=== PATIENT | female | born 1985 | race Caucasian/White ===

== ENCOUNTER 2020-06-08 15:32 | Emergency (ER) | payer OTHER, SELFPAY ==
--- NOTE | ~2020-06-08 | XR_ITS ---
EXAMINATION: XR chest 1V portable EXAM DATE: 06/08/2020 17:43 INDICATION: COVID-19 positive. Shortness of breath. TECHNIQUE: Portable AP frontal chest x-ray was obtained. Comparison is made to prior examination from 08/04/2017. FINDINGS: The lungs are clear. There are no pleural effusions. The cardiomediastinal silhouette is within normal limits. There is no pneumothorax suspected. The bones and soft tissues are unremarkab le. IMPRESSION: No acute cardiopulmonary findings. Reviewed, dictated and finalized at location A.
[2020-06-08 15:52] VITALS: BP 130/80; PULSE 100; RESP 16; TEMP 36.4; O2SAT 99
--- NOTE | 2020-06-08 18:07 | ECG_ITS ---
Measurements Intervals Wayside Rate: 74 P: 55 SD: 157 QRS: 22 QRSD: 90 T: 18 QT: 376 QTc: 418 Interpretive Statements SINUS RHYTHM INCOMPLETE RIGHT BUNDLE BRANCH BLOCK BORDERLINE ST-T WAVE ABNORMALITY- ANERTEROLAT/INF LEADS BASELINE ARTIFACT- I, II, III, AVR, AVL BORDERLINE ECG Electronically Signed On 06-08-2020 21:29:23 CDT by Tiburcio Brice D.O.
--- NOTE | 2020-06-08 18:27 | ED.URI ---
HPI - URI/Sore Throat General Chief Complaint: Upper Respiratory Infection Stated Complaint: sob, covid + Time Seen by Provider: 06/08/20 17:31 Source: patient Mode of arrival: ambulatory Limitations: no limitations History of Present Illness HPI Narrative: This is a 34-year-old female that presents the emergency department for shortness of breath x3 days. Reports she has recently diagnosed with Covid. Reports she has had worsening shortness of breath over the last couple of days. Reports chest pain when she coughs. Denies fever or lower extremity edema. Related Data Allergies Allergy/AdvReac Type Severity Reaction Status Date / Time acetaminophen [From Vicodin] Allergy Unknown Verified 06/08/20 15:54 hydrocodone [From Vicodin] Allergy Unknown Verified 06/08/20 15:54 Review of Systems Review of Systems: Narrative: CONSTITUTIONAL: Denies fever ENT: Reports rhinorrhea, congestion, sore throat CARDIOVASCULAR: Reports chest pain. Denies edema. RESPIRATORY: Reports cough and dyspnea. All systems reviewed & are unremarkable except as noted in HPI and below PMFSH Social History Social History (Updated 06/08/20 @ 18:43 by Marian Combs PA-C) Smoking status: Current every day smoker Substance use: never Exam Narrative: Exam Narrative: GENERAL: Well-appearing, well-nourished, and in no acute distress. HEAD: Normocephalic, atraumatic. EYES: EOMI. ENT: Nares clear, no rhinorrhea or epistaxis. Mucous membranes moist. Oropharynx without tonsillar hypertrophy exudate or other lesions. Bilateral TMs pearly tejeda non-bulging NECK: Supple. No adenopathy or masses. CHEST: Clear to auscultation. No respiratory distress. No wheezes rales or rhonchi HEART: Regular rate and rhythm. No murmur heard. Normal peripheral pulses. EXTREMITIES: Normal range of motion. No edema. SKIN: Warm, dry, no rash. NEURO: No focal deficits. Alert and oriented x3. PSYCH: Normal mood and affect Course Vital Signs Vital signs: Vital Signs Temperature 97.6 F 06/08/20 15:52 Pulse Rate 100 06/08/20 15:52 Respiratory Rate 16 06/08/20 15:52 Blood Pressure 130/80 06/08/20 15:52 Pulse Oximetry 99 06/08/20 15:52 Temperature 97.6 F 06/08/20 15:52 Pulse Rate 79 06/08/20 18:57 Respiratory Rate 15 06/08/20 18:57 Blood Pressure 114/85 06/08/20 18:57 Pulse Oximetry 95 06/08/20 18:57 MDM - URI/Sore Throat MDM Narrative Medical decision making narrative: Patient presents the emergency department for shortness of breath. Was recently diagnosed with Covid. She is afebrile and nontoxic appearing. Oxygen saturation has remained normal on room air. CBC is without leukocytosis. Metabolic panel without concerning findings. CRP and lactic are not elevated. D-dimer is not elevated. Troponin is negative. Chest x-ray without acute findings. Patient was updated on case findings. She is stable and felt appropriate for further outpatient evaluation. She was given warnings to return to the ER Lab Data Attestation: I reviewed the patient's lab results. Result diagrams: 06/08/20 18:38 06/08/20 18:38 Labs: Lab Results 06/08/20 06/08/20 06/08/20 Range/Units 18:38 18:38 18:38 WBC 7.8 (4.5-10.0) K/mm3 RBC 4.95 (4.2-5.4) M/mm3 Hgb 14.3 (12.0-15.0) g/dL Hct 43.5 (37.0-47.0) % MCV 87.9 (80-100) fl MCH 28.9 (26-34) pg MCHC 32.9 (32-36) g/dl RDW 14.3 (11.5-14.5) % Plt Count 249 (150-375) k/mm3 MPV 10.2 (7.4-10.4) fl Immature Gran % (Auto) 0.1 (0-0.5) % Neut % (Auto) 62.2 (45.5-73.1) % Lymph % (Auto) 25.8 (18.3-44.2) % [place] % (Auto) 10.5 H (2.6-8.5) % Eos % (Auto) 1.0 (0-4.4) % Baso % (Auto) 0.4 (0.2-1.2) % Lymph # (Auto) 2.01 (0.9-3.2) K/mm3 [place] # (Auto) 0.8 H (0.1-0.6) K/mm3 Eos # (Auto) 0.1 (0-0.3) K/mm3 Baso # (Auto) 0.0 (0.0-0.1) K/mm3 Abs Immat Gran (auto) 0.01 (0.00-0.031) K/mm3 Absolute
[2020-06-08 18:55] LABS: Basophils Percent Auto 0.4 % (0.2-1.2); Eosinophils Absolute Auto 0.1 K/mm3 (0-0.3); Hematocrit 43.5 % (37.0-47.0); Hemoglobin 14.3 g/dL (12.0-15.0); Immature Granulocyte Absolute 0.01 K/mm3 (0.00-0.031); Immature Granulocyte Percent A 0.1 % (0-0.5); Lymphocytes Absolute Auto 2.01 K/mm3 (0.9-3.2); Lymphocytes Percent Auto 25.8 % (18.3-44.2); Mean Corpuscular HGB Conc 32.9 g/dl (32-36); Mean Corpuscular Hemoglobin 28.9 pg (26-34); Mean Corpuscular Volume 87.9 fl (80-100); Mean Platelet Volume 10.2 fl (7.4-10.4); Monocytes Absolute Auto 0.8 K/mm3 (0.1-0.6); Monocytes Percent Auto 10.5 % (2.6-8.5); Neutrophils Absolute Auto 4.8 K/mm3 (1.3-6.7); Neutrophils Percent Auto 62.2 % (45.5-73.1); Platelet Count Result 249 k/mm3 (150-375); Red Blood Count 4.95 M/mm3 (4.2-5.4); Red Cell Distribution Width 14.3 % (11.5-14.5); White Blood Count 7.8 K/mm3 (4.5-10.0)
[2020-06-08 18:57] VITALS: BP 114/85; PULSE 79; RESP 15; O2SAT 95
[2020-06-08 19:04] LABS: Prothrombin Time 12.6 Seconds (11.1-14.7)
[2020-06-08 19:05] LABS: Lactic Acid Reflex 0.6 mmol/L (0.7-2.1)
[2020-06-08 19:08] LABS: D Dimer 0.45 ug/mL (<0.48)
[2020-06-08 19:11] LABS: Alanine Aminotransferase 22 U/L (4-35); Albumin Level 4.6 g/dL (3.5-5.1); Alkaline Phosphatase 87 U/L (38-126); Anion Gap 8 mmol/L (8-16); Aspartate Amino Transferase 25 U/L (14-36); Bilirubin,Total 0.7 mg/dL (0.2-1.3); Blood Urea Nitrogen 14 mg/dL (7-17); CRP 0.7 mg/dL (<1.0); Calcium 9.3 mg/dL (8.4-10.2); Carbon Dioxide 26 mmol/L (22-30); Chloride 105 mmol/L (98-107); Estimated CRCL calculation 95 ml/min; Estimated Glomerular Filt Rate > 60; Glucose 88 mg/dL (65-105); Lactate Dehydrogenase 375 U/L (313-618); Potassium 3.9 mmol/L (3.4-5.0); Sodium 139 mmol/L (137-145)
[2020-06-08 19:19] LABS: Troponin I < 0.012 ng/mL (0.000-0.034)
[2020-06-08 20:12] VITALS: BP 112/80; PULSE 77; RESP 14; O2SAT 98
== END 2020-06-08 20:13 | disposition home or self-care (01) ==
PROVIDERS: Physician Assistant; Emergency Provider Emergency Medicine; PCP Family Medicine
DX: U07.1 COVID-19 (principal); I45.10 Unspecified right bundle-branch block; R94.31 Abnormal electrocardiogram [ECG] [EKG]; F17.200 Nicotine dependence, unspecified, uncomplicated
CPT/HCPCS: 36415; 71045; 80053; 82728; 83605; 83615; 84484; 85025; 85380; 85610; 85730; 86140; 93005; 99284

== ENCOUNTER 2021-03-21 12:05 | Outpatient (CLI) | payer OTHER, SELFPAY ==
[2021-03-21] VITALS (12 sets, daily range): BP systolic 135–153; BP diastolic 88–101; PULSE 76–101
[2021-03-21 13:08] LABS: Basophils Percent Auto 0.3 % (0.2-1.2); Eosinophils Absolute Auto 0.1 K/mm3 (0-0.3); Eosinophils Percent Auto 1.2 % (0-4.4); Hematocrit 29.8 % (37.0-47.0); Hemoglobin 9.6 g/dL (12.0-15.0); Immature Granulocyte Percent A 0.9 % (0-0.5); Lymphocytes Absolute Auto 2.51 K/mm3 (0.9-3.2); Lymphocytes Percent Auto 23.4 % (18.3-44.2); Mean Corpuscular HGB Conc 32.2 g/dl (32-36); Mean Corpuscular Hemoglobin 28.7 pg (26-34); Mean Platelet Volume 10.5 fl (7.4-10.4); Monocytes Absolute Auto 0.9 K/mm3 (0.1-0.6); Monocytes Percent Auto 7.9 % (2.6-8.5); Neutrophils Absolute Auto 7.1 K/mm3 (1.3-6.7); Neutrophils Percent Auto 66.3 % (45.5-73.1); Platelet Count Result 221 k/mm3 (150-375); Red Blood Count 3.35 M/mm3 (4.2-5.4); Red Cell Distribution Width 13.2 % (11.5-14.5); White Blood Count 10.7 K/mm3 (4.5-10.0)
[2021-03-21 13:13] LABS: Add Urine Microscopic? YES; Appearance Urine Clear (Clear); Bacteria Urine Trace /hpf; Bilirubin Urine Negative (Negative); Blood Urine Negative (Negative); Color Urine Straw (Yellow); Glucose Urine UA Negative (Negative); Ketones Urine Negative (Negative); Leukocyte Esterase Ur 1+ LEU/UL (NEGATIVE); Nitrate Urine Negative (Negative); Protein Urine 2+ mg/dL (Negative); RBC Urine 0-2 /hpf (0-2); Squamous Epithelial Cell Urine Moderate /hpf (Few); Urobilinogen Urine Negative mg/dL (<2.0)
[2021-03-21 13:15] LABS: Creatinine Urine 21.2 mg/dL; Total Protein Urine Random 87 mg/dL
[2021-03-21 13:17] LABS: Alanine Aminotransferase 11 U/L (4-35); Albumin Level 3.2 g/dL (3.5-5.1); Alkaline Phosphatase 166 U/L (38-126); Anion Gap 8 mmol/L (8-16); Aspartate Amino Transferase 19 U/L (14-36); Bilirubin,Total 0.5 mg/dL (0.2-1.3); Blood Urea Nitrogen 4 mg/dL (7-17); Calcium 8.5 mg/dL (8.4-10.2); Carbon Dioxide 19 mmol/L (22-30); Chloride 109 mmol/L (98-107); Estimated Glomerular Filt Rate > 60; Glucose 77 mg/dL (65-110); Potassium 3.7 mmol/L (3.4-5.0); Sodium 136 mmol/L (137-145); Uric Acid 5.3 mg/dL (2.5-7.5)
[2021-03-21 13:19] LABS: Specific Grav Ur 1.004 (1.001-1.035)
--- NOTE | 2021-03-21 13:32 | PC.NURSE ---
1205--Pt. to OB with reports of elevated BP while she was at work today. Pt. denies any h/a, epigastric pain, n/v. Pt. states she gets floaters on and off but has not had any today. She also says she feels foggy on occasion. Pitting edema of 2+ noted to BLE, and DTR's of 2+ to BLE, no clonus noted.
[2021-03-21] MEDS: LABETALOL HCL 100 MG TABLET 200 MG PO (13:52)
[2021-03-21] MEDS: ACETAMINOPHEN 500 MG TABLET 1000 MG PO (14:26)
--- NOTE | 2021-03-21 15:45 | PC.NURSE ---
1545--Report to Dr. Oconnor re: BP's, h/a gone at this time. Orders to DC home with instructions for 24hr urine and Labetalol 200mg PO BID.
== END 2021-03-21 16:18 | disposition home or self-care (01) ==
LOC: ANHOBOP 12:14 → ANHOBPP 12:15
PROVIDERS: Obstetrics & Gynecology; PCP Family Medicine; Visit Provider Obstetrics & Gynecology
DX: O13.9 Gestational [pregnancy-induced] hypertension without significant proteinuria, unspecified trimester (principal); Z3A.00 Weeks of gestation of pregnancy not specified
CPT/HCPCS: 36415; 59025; 80053; 81001; 82570; 84156; 84550; 85025; 87086; 99199; A9270

== ENCOUNTER 2021-03-22 14:45 | Outpatient (NON) | payer OTHER, SELFPAY ==
[2021-03-22 14:59] VITALS: BMI 33.0
[2021-03-22 15:35] LABS: Collection Time Urine 24 HOURS
[2021-03-22 16:02] LABS: Patient Weight 186 Lbs; Total Volume 24 Hour Urine 1200 ml
[2021-03-22 16:13] LABS: Creatinine Clearance Urine 140.4 ml/min (75-125); Total Protein Urine Random 96 mg/dL
[2021-03-22 16:24] LABS: Total Protein Urine 24 Hr 1152 mg/24hr (28-141)
== END 2021-03-22 14:46 | disposition home or self-care (01) ==
LOC: ANHOBOP 14:52
PROVIDERS: Visit Provider Obstetrics & Gynecology
DX: O16.9 Unspecified maternal hypertension, unspecified trimester (principal); Z3A.00 Weeks of gestation of pregnancy not specified
CPT/HCPCS: 81050; 82575; 84156

== ENCOUNTER 2021-03-23 17:35 | Outpatient (CLI) | payer OTHER, SELFPAY ==
[2021-03-23 18:01] VITALS: BP 140/91; PULSE 87
[2021-03-23 18:11] LABS: Basophils Percent Auto 0.3 % (0.2-1.2); Eosinophils Absolute Auto 0.1 K/mm3 (0-0.3); Hematocrit 28.5 % (37.0-47.0); Hemoglobin 9.1 g/dL (12.0-15.0); Immature Granulocyte Absolute 0.21 K/mm3 (0.00-0.031); Immature Granulocyte Percent A 1.8 % (0-0.5); Lymphocytes Absolute Auto 2.95 K/mm3 (0.9-3.2); Lymphocytes Percent Auto 25.9 % (18.3-44.2); Mean Corpuscular HGB Conc 31.9 g/dl (32-36); Mean Corpuscular Hemoglobin 28.3 pg (26-34); Mean Corpuscular Volume 88.8 fl (80-100); Mean Platelet Volume 10.7 fl (7.4-10.4); Monocytes Absolute Auto 0.9 K/mm3 (0.1-0.6); Monocytes Percent Auto 8.2 % (2.6-8.5); Neutrophils Absolute Auto 7.2 K/mm3 (1.3-6.7); Neutrophils Percent Auto 62.8 % (45.5-73.1); Nucleated Red Blood Cells Perc 0.2 % (0.0-0.2); Platelet Count Result 223 k/mm3 (150-375); Red Blood Count 3.21 M/mm3 (4.2-5.4); Red Cell Distribution Width 13.5 % (11.5-14.5); White Blood Count 11.4 K/mm3 (4.5-10.0)
[2021-03-23 18:16] VITALS: BP 139/89; PULSE 85
[2021-03-23 18:25] LABS: Alanine Aminotransferase 11 U/L (4-35); Albumin Level 3.1 g/dL (3.5-5.1); Alkaline Phosphatase 164 U/L (38-126); Anion Gap 7 mmol/L (8-16); Aspartate Amino Transferase 21 U/L (14-36); Bilirubin,Total 0.3 mg/dL (0.2-1.3); Blood Urea Nitrogen 6 mg/dL (7-17); Calcium 8.7 mg/dL (8.4-10.2); Carbon Dioxide 19 mmol/L (22-30); Chloride 110 mmol/L (98-107); Estimated Glomerular Filt Rate > 60; Glucose 69 mg/dL (65-110); Potassium 3.8 mmol/L (3.4-5.0); Sodium 136 mmol/L (137-145); Uric Acid 5.8 mg/dL (2.5-7.5)
[2021-03-23 18:31] VITALS: BP 137/89; PULSE 85
== END 2021-03-23 18:47 | disposition home or self-care (01) ==
LOC: ANHOBOP 17:39 → ANHOBPP 17:42
PROVIDERS: PCP Obstetrics & Gynecology; Visit Provider Obstetrics & Gynecology
DX: O13.9 Gestational [pregnancy-induced] hypertension without significant proteinuria, unspecified trimester (principal); Z3A.00 Weeks of gestation of pregnancy not specified
CPT/HCPCS: 36415; 59025; 80053; 84550; 85025; 99199

== ENCOUNTER 2022-11-12 16:05 | Observation (INO) | payer OTHER, SELFPAY ==
--- NOTE | 2022-11-12 16:30 | PC.NURSE ---
Dr. Tiwari on unit and informed of pt's arrival and symptoms. Orders received.
[2022-11-12 16:33] VITALS: BP 113/66; PULSE 91
[2022-11-12 16:45] VITALS: BP 111/69; PULSE 91
[2022-11-12 17:00] VITALS: BP 108/67; PULSE 97
[2022-11-12] MEDS: ONDANSETRON HCL ODT 4 MG TABLET PO (17:03)
[2022-11-12 17:04] VITALS: BMI 32.8
--- NOTE | 2022-11-12 17:06 | OBADM ---
This patient, Leoncio Herzog, admitted to the OB room 116 for observation. Patient/family oriented to hospital policies and general routines including ID bracelet, bed and alarms, visiting hours, pain management, procedures, bathroom and other care routines, personal items, smoking policy, room service/diet, and visiting hours. Patient/Family are encouraged to report perceived risks to care and to ask questions if they do not understand what they are told or what they should do.
[2022-11-12 17:15] VITALS: BP 114/64; PULSE 97
[2022-11-12 17:17] VITALS: RESP 18; TEMP 37.3
--- NOTE | 2022-11-12 17:27 | PC.NURSE ---
Dr. Tiwari informed of reactive NST, no contractions, normal BP's. UA sent.
[2022-11-12 17:38] LABS: Appearance Urine Clear (Clear); Bilirubin Urine Negative (Negative); Blood Urine Negative (Negative); Color Urine Yellow (Yellow); Glucose Urine UA Negative (Negative); Ketones Urine Negative (Negative); Leukocyte Esterase Ur Negative LEU/UL (Negative); Nitrate Urine Negative (Negative); Protein Urine Negative (Negative); Specific Grav Ur 1.014 (1.001-1.035); pH Urine 6.5 (5.0-9.0)
[2022-11-12 17:51] LABS: Add Urine Microscopic? NO
--- NOTE | 2022-11-12 18:54 | PC.NURSE ---
Dr. Tiwari informed of UA results. Lab states when a UA is negative, no micro is performed. Informed pt felt 1 contraction since taken off the monitor. Nausea has resolved. No improvement in back pain even with heat to blanket. Order received for discharge. To send RX for Flexeril for pt to try at home as she will be driving herself home. Pt to call office and be seen this week if pain doesn't improve.
--- NOTE | 2022-11-14 14:58 | P.PNOB_ITS ---
OB - Triage/Final Diagnosis Visit Information Comments/Additional reasons for admission: I have assessed the risk for this patient, Leoncio Herzog, and determined that she would benefit from observation care. Evaluation Laboratory results: Laboratory Tests 11/12/22 17:19 Urine Color Yellow Urine Appearance Clear Urine pH 6.5 Ur Specific [place] 1.014 Urine Protein Negative Urine Glucose (UA) Negative Urine Ketones Negative Ur Blood (Man) Negative Urine Nitrate Negative Urine Bilirubin Negative Urine Urobilinogen 1.0 Leukocyte Esterase Rfl Negative Final Diagnosis (1) Nausea and vomiting during : Code(s): O21.9 - Vomiting of , unspecified Status: Acute
== END 2022-11-12 19:17 | disposition home or self-care (01) ==
PROVIDERS: Admitting Provider Obstetrics & Gynecology; PCP Family Medicine; Visit Provider Obstetrics & Gynecology
DX: O21.2 Late vomiting of pregnancy (principal); Z3A.31 31 weeks gestation of pregnancy
CPT/HCPCS: 81003; A9270; G0378; G0379

== ENCOUNTER 2022-12-17 07:18 | Inpatient (IN) | payer OTHER, SELFPAY ==
[2022-12-17] VITALS (95 sets, daily range): BP systolic 75–135; BP diastolic 47–105; PULSE 60–130; RESP 12–18; TEMP 36.4–37.4; O2SAT 87–100; BMI 28.7
[2022-12-17 08:21] LABS: Basophils Percent Auto 0.3 % (0.2-1.2); Eosinophils Absolute Auto 0.1 K/mm3 (0-0.3); Eosinophils Percent Auto 1.3 % (0-4.4); Hemoglobin 11.6 g/dL (12.0-15.0); Immature Granulocyte Absolute 0.09 K/mm3 (0.00-0.031); Immature Granulocyte Percent A 0.9 % (0-0.5); Lymphocytes Absolute Auto 2.82 K/mm3 (0.9-3.2); Lymphocytes Percent Auto 29.6 % (18.3-44.2); Mean Corpuscular HGB Conc 32.2 g/dl (32-36); Mean Corpuscular Hemoglobin 29.3 pg (26-34); Mean Corpuscular Volume 90.9 fl (80-100); Mean Platelet Volume 11.1 fl (7.4-10.4); Monocytes Absolute Auto 0.8 K/mm3 (0.1-0.6); Monocytes Percent Auto 8.5 % (2.6-8.5); Neutrophils Absolute Auto 5.7 K/mm3 (1.3-6.7); Neutrophils Percent Auto 59.4 % (45.5-73.1); Platelet Count Result 220 k/mm3 (150-375); Red Blood Count 3.96 M/mm3 (4.2-5.4); Red Cell Distribution Width 14.4 % (11.5-14.5); White Blood Count 9.5 K/mm3 (4.5-10.0)
[2022-12-17] MEDS: LACTATED RINGERS 1,000 ML 125 ML IV CONT (08:22)
--- NOTE | 2022-12-17 08:33 | LDADM ---
This patient, Leoncio Herzog, was admitted to Labor/Delivery/Recovery 119 on 12/17/22 at 07:18 with vaginal bleeding. Plans for labor or section, pain management and were discussed with patient. Patient/family oriented to hospital policies and general routines including ID bracelet, bed and alarms, visiting hours, pain management, procedures, bathroom and other care routines, personal items, smoking policy, room service/diet and guest tray routines, infant security routines, and visiting hours. Patient/Family are encouraged to report perceived risks to care and to ask questions if they do not understand what they are told or what they should do. See OBIX for further documentation.
--- NOTE | 2022-12-17 09:40 | WPDANESEPPF ---
Anes - Initial Pre Proc Eval Procedure: Operation Date: 01/06/23 12:00 Proposed Procedures p Primary Section - Toni Tiwari MD Date/Time: 12/17/22 09:40 Surgeon: Toni Tiwari MD Pre Op Diagnosis: Bleeding Patient Data Age: 37 Gender: F Height: 1.6 m Weight: 73.5 kg Last Vital Signs Pulse 113 H 12/17/22 08:21 BP 115/70 12/17/22 08:21 Pulse Ox 99 12/17/22 09:35 O2 Del Method Room Air 12/17/22 08:33 Allergies Allergy/AdvReac Type Severity Reaction Status Date / Time tinidazole Allergy Unknown Hives Verified 02/27/22 11:41 hydrocodone [From Vicodin] Allergy Itching Verified 02/27/22 11:41 Home Medications Medication Instructions Recorded Confirmed Type aspirin 81 mg chewable tablet 162 mg PO HS 11/12/22 12/17/22 History htlkkqi-abcdlmvudaarj-odkaynlz 250 1 tablet PO Q4-6H PRN Pain 11/12/22 12/17/22 History mg-250 mg-65 mg tablet (Excedrin Extra Strength) iron polysacch cplx 150 mg 1 cap PO DAILY 11/12/22 12/17/22 History iron-vit B12 25 mcg-folic acid 1 mg capsule (Poly-Iron) vit no.95-ferrous 1 tablet PO DAILY 11/12/22 12/17/22 History fumarate 28 mg-folic acid 800 mcg tablet () azithromycin 250 mg tablet 250 mg PO DAILY 12/17/22 12/17/22 History docusate sodium 100 mg capsule 100 mg PO DAILY 12/17/22 12/17/22 History (Colace) guaifenesin 600 mg tablet, 600 mg PO Q12H PRN post nasal 12/17/22 12/17/22 History extended release 12 hr (Mucinex) drainage pseudoephedrine HCl 60 mg tablet 60 mg PO Q4-6H PRN Post Nasal Drip 12/17/22 12/17/22 History sertraline 100 mg tablet 100 mg PO HS 12/17/22 12/17/22 History Laboratory Tests 12/17/22 12/17/22 08:15 09:30 WBC 9.5 K/mm3 (4.5-10.0) RBC 3.96 L M/mm3 (4.2-5.4) Hgb 11.6 L g/dL (12.0-15.0) Hct 36.0 L % (37.0-47.0) MCV 90.9 fl (80-100) MCH 29.3 pg (26-34) MCHC 32.2 g/dl (32-36) RDW 14.4 % (11.5-14.5) Plt Count 220 k/mm3 (150-375) MPV 11.1 H fl (7.4-10.4) Immature Gran % (Auto) 0.9 H % (0-0.5) Neut % (Auto) 59.4 % (45.5-73.1) Lymph % (Auto) 29.6 % (18.3-44.2) [place] % (Auto) 8.5 % (2.6-8.5) Eos % (Auto) 1.3 % (0-4.4) Baso % (Auto) 0.3 % (0.2-1.2) Lymph # (Auto) 2.82 K/mm3 (0.9-3.2) [place] # (Auto) 0.8 H K/mm3 (0.1-0.6) Eos # (Auto) 0.1 K/mm3 (0-0.3) Baso # (Auto) 0.0 K/mm3 (0.0-0.1) Abs Immat Gran (auto) 0.09 H K/mm3 (0.00-0.031) Absolute Neuts (auto) 5.7 K/mm3 (1.3-6.7) Absolute Nucleated RBC 0.0 K/mm3 (0.0-0.012) Nucleated RBC % 0.0 % (0.0-0.2) RPR Pending HIV 1&2 Ab/P24 Ag 4thGn Pending Blood Type A Positive Antibody Screen Pending Patient hx anesthesia problems: none Family hx anesthesia problems: none Results Review: All pre-operative results and documents have been reviewed as part of the pre-operative evaluation. [facility] Past Medical History Medical History (Updated 11/14/22 @ 14:59 by Toni Tiwari MD) Anemia, blood loss Pre-eclampsia Family History Family History (Updated 12/17/22 @ 09:35 by Arlen Caballero RN) Grandparent Family history of cardiovascular disease Malignant neoplasm of prostate Family history of arthritis Acute myocardial infarction Depression Family history of Alzheimer's disease Family history of glaucoma Family history of coronary artery disease Family history of dementia Father Patient's father is Family history of hypercholesterolemia Hypertension Hypercholesteremia Mother Family history of allergic disorder Depression Patient's mother is in good health Family history of malignant neoplasm of breast in first degree relative Family history of mental disorder Family history of rheumatoid arthritis Rheumatoid arthritis Breast cancer
[2022-12-17] MEDS: ceFAZolin 2 GM/D5W 50 ML 2 GM/50 ML BAG IVPB (09:48)
[2022-12-17 10:29] LABS: HIV 1/2 Ab P24 Ag Result Negative (Negative)
--- NOTE | 2022-12-17 10:44 | PM.IMHP ---
H&P: HPI History of Present Illness Date/Time: 12/17/22 10:44 Chief Complaint: Bleeding Narrative: 37 y/o at 36 5/7 weeks who was being followed for placenta previa. An ultrasound in office yesterday suggested the placenta previa had resolved. However, early this morning she was having a bowel movement and experienced gushes of vaginal bleeding. No pain. Rare contractions. Good movement. Prior significant for severe preeclampsia, 33 weeks delivery, with a retained placenta and hemorrhage leading to D&C and transfusion x 2. MFM comanagement through this . Anxiety well controlled with Zoloft. GBS neg. Review of Systems Review of Systems: All systems reviewed & are unremarkable except as noted in HPI and below PMFSH Past Medical History Medical History Anemia, blood loss Pre-eclampsia Family History Family History Grandparent Family history of cardiovascular disease Malignant neoplasm of prostate Family history of arthritis Acute myocardial infarction Depression Family history of Alzheimer's disease Family history of glaucoma Family history of coronary artery disease Family history of dementia Father Patient's father is Family history of hypercholesterolemia Hypertension Hypercholesteremia Mother Family history of allergic disorder Depression Patient's mother is in good health Family history of malignant neoplasm of breast in first degree relative Family history of mental disorder Family history of rheumatoid arthritis Rheumatoid arthritis Breast cancer Sibling Family history of eczema Depression Patient's brother is in good health Family history of mental disorder Asthma Other Family history of juvenile rheumatoid arthritis Family history of osteoarthritis Social History Social History Smoking status: Current every day smoker (discussed cessation) Tobacco type: cigarettes Alcohol intake: current Substance use: never Spiritual care concerns: No Meds Home Medications and Allergies Home Medications Medication Instructions Recorded Confirmed Type aspirin 81 mg chewable tablet 162 mg PO HS 11/12/22 12/17/22 History zbfkegr-wvhcttlionrvz-wojusztf 250 1 tablet PO Q4-6H PRN Pain 11/12/22 12/17/22 History mg-250 mg-65 mg tablet (Excedrin Extra Strength) iron polysacch cplx 150 mg 1 cap PO DAILY 11/12/22 12/17/22 History iron-vit B12 25 mcg-folic acid 1 mg capsule (Poly-Iron) vit no.95-ferrous 1 tablet PO DAILY 11/12/22 12/17/22 History fumarate 28 mg-folic acid 800 mcg tablet () azithromycin 250 mg tablet 250 mg PO DAILY 12/17/22 12/17/22 History docusate sodium 100 mg capsule 100 mg PO DAILY 12/17/22 12/17/22 History (Colace) guaifenesin 600 mg tablet, 600 mg PO Q12H PRN post nasal 12/17/22 12/17/22 History extended release 12 hr (Mucinex) drainage pseudoephedrine HCl 60 mg tablet 60 mg PO Q4-6H PRN Post Nasal Drip 12/17/22 12/17/22 History sertraline 100 mg tablet 100 mg PO HS 12/17/22 12/17/22 History Allergies Allergy/AdvReac Type Severity Reaction Status Date / Time tinidazole Allergy Unknown Hives Verified 02/27/22 11:41 hydrocodone [From Vicodin] Allergy Itching Verified 02/27/22 11:41 Vital Signs Vital Signs - 24 hr 12/17/22 07:40 12/17/22 08:00 12/17/22 08:01 Pulse Rate 108 H 101 H Blood Pressure 116/78 117/77 Pulse Oximetry 97 Oxygen Delivery 12/17/22 08:06 12/17/22 08:11 12/17/22 08:15 Pulse Rate 113 H Blood Pressure 115/70 Pulse Oximetry 98 97 Oxygen Delivery 12/17/22 08:16 12/17/22 08:21 12/17/22 08:26 Pulse Rate Blood Pressure Pulse Oximetry 97 97 98 Oxygen Delivery 12/17/22 08:31 12/17/22 08:36 12/17/22 08:41 Pulse
--- NOTE | 2022-12-17 10:44 | PM.OBPRVD ---
OB - Delivery Note Procedure Delivery date: 12/17/22 Procedure: Procedures Operation Date: 12/17/22 09:45 <No data on this case meets the specified criteria> Operation Date: 01/06/23 12:00 <No data on this case meets the specified criteria> Primary low transverse delivery Delivery monitor: External FHT and External Uterine Route of delivery: Specimen: Yes (cord blood, placenta) Quantitative Blood Loss (ml): 1,460 Anesthesia type: Spinal Disposition: PACU Complications: None Narrative: Preop Dx: IUP at 36 5/7 weeks, low lying placenta, vaginal bleeding. Postop Dx: Same. Findings: Anterior placenta, low lying. Normal-appearing uterus, tubes and ovaries. The patient was taken to the operating room where she was prepared and draped in the usual sterile fashion in dorsal supine position with a leftward tilt. She received cefazolin preoperatively. Spinal anesthesia was found to be adequate. A Pfannenstiel skin incision was made and carried through to the underlying layer of the fascia. The fascia was incised in the midline and the incision was extended laterally. The fascia was dissected free of the underlying rectus muscles. The rectus muscles were in the midline. The peritoneum was identified, tented up and entered sharply. The peritoneal incision was extended superiorly and inferiorly with good visualization of the bladder. The bladder blade was placed. The vesicouterine peritoneum was identified, tented up and entered sharply. The incision was extended laterally and the bladder flap was developed. The bladder blade was replaced. The uterus was then incised sharply in a transverse fashion along the lower uterine segment. The incision was extended laterally. The infant's head was delivered atraumatically to the sterile field, followed by the body. The nose and mouth were bulb suctioned. After a delay, the cord was clamped and cut. The infant was handed off the field. Cord blood was collected. The placenta was a little adherent, but was removed manually and was passed off the field. The uterus was exteriorized and cleared of all clots and debris. The uterine incision was reapproximated using 0 Monocryl in a running, locked fashion. Excellent hemostasis resulted as did excellent reapproximation of the normal anatomy. The uterus was returned the abdomen. The pelvis was irrigated copiously with warmed normal saline. Rigorous hemostasis was assured. The fascial layer was reapproximated using 0 Vicryl in a running fashion. The skin was closed with a running, subcuticular stitch of 4 0 Vicryl. Dermaflex was applied externally. Sponge, lap, needle and instrument counts were correct. The patient was taken to the recovery room in stable condition. The went to the nursery in stable condition. I was present and scrubbed the entire procedure. [place] Baby Date of : 12/17/22 Time of : 10:15 Weeks of gestation at delivery: 36 Infant gender: Male Weight (pounds): 7 Weight (ounces): 6 presentation: vertex Placenta delivery description: Manual Removal and Normal Configuration Cord Vessel Description: 3 Vessels and Delayed Cord Clamping score one minute: 8 score five minutes: 9
--- NOTE | 2022-12-17 10:46 | PM.OBDSVD ---
DS: Admitting Diagnosis Discharge Date 12/20/22 Admitting Diagnosis IUP at 36 5/7 weeks Low lying placenta Vaginal bleeding DS: Discharge Diagnosis Discharge Diagnosis (1) Low lying placenta with hemorrhage in third trimester, antepartum: Code(s): O44.53 - Low lying placenta with hemorrhage, third trimester Status: Acute (2) Vaginal bleeding affecting early : Code(s): O20.9 - Hemorrhage in early , unspecified Status: Acute (3) delivery delivered: Code(s): O82 - Encounter for delivery without indication Status: Acute OB - DS: Summary OB Procedures : NST and PTL Mgmt OB Procedures Intrapartum: OB Procedures: : None Peripartum Data Procedures: Procedures Operation Date: 12/17/22 09:45 <No data on this case meets the specified criteria> Operation Date: 01/06/23 12:00 <No data on this case meets the specified criteria> Time Spent with Patient Time attestation: Total time spent providing and/or coordinating discharge services: DS: Data Data Completed and Pending Labs on day of discharge: Labs from last 24 hours 12/17/22 12/17/22 09:30 08:15 WBC 9.5 RBC 3.96 L Hgb 11.6 L Hct 36.0 L MCV 90.9 MCH 29.3 MCHC 32.2 RDW 14.4 Plt Count 220 MPV 11.1 H Immature Gran % (Auto) 0.9 H Neut % (Auto) 59.4 Lymph % (Auto) 29.6 [place] % (Auto) 8.5 Eos % (Auto) 1.3 Baso % (Auto) 0.3 Lymph # (Auto) 2.82 [place] # (Auto) 0.8 H Eos # (Auto) 0.1 Baso # (Auto) 0.0 Abs Immat Gran (auto) 0.09 H Absolute Neuts (auto) 5.7 Absolute Nucleated RBC 0.0 Nucleated RBC % 0.0 RPR Pending HIV 1&2 Ab/P24 Ag 4thGn Negative Blood Type A Positive Antibody Screen Negative Discharge Plan Discharge Attending physician on discharge: Toni Tiwari Consulting providers: Roshan Davidson; Radha Schaeffer Discharging Clinician: Toni Tiwari Patient Disposition: Home, Self-Care Activity: may shower, may drive after 2 weeks and pelvic rest Diet: regular Wound Care Instructions: incision open to air Discharge Instructions: Call or return if temperature above 100.4? F, increased abdominal pain, increased vaginal bleeding or any new problems. Education: Mom and Baby Guide Given to: Mother Follow-Up: Call your delivering provider's office for an appointment to be seen in: 4 Weeks Mom and baby should come to the [facility] for the follow-up appointment. Appointment Date/Time: December 22, 2022 at 11:00 am What to expect at your follow-up visit: Physical Assessment Call [phone] if you are unable to keep your appointment time. BREAST CARE: * Wear a snug supportive bra. * For engorgement discomfort: Breast Feeding: * Apply warm moist washcloths * Express milk as needed to relieve engorgement * Wear loose clothing * For sore nipples: * Identify correct latch-on * Apply warm moist washcloths before and after nursing * Air dry nipples after nursing * May apply Lansinoh cream to nipples ABDOMINAL INCISION: * Allow incision to air dry * Do NOT use lotions for powders on your incision * When showering, allow soap and water to run over the incision, but do not wash incision PERINEAL CARE: * Until bleeding stops, use your jazzy bottle after urinating * Change your pad frequently throughout the day * No tub baths until seen by your physician - You may shower ACTIVITY: * Rest as much as possible. * Do not exercise or lift anything heavier than your baby (such as laundry or other children.) * Avoid stairs or driving as much as possible. * Do not put anything into the vagina. No douching, tampons, or sexual activity until seen by physician. NOTIFY PHYSICIAN IF YOU HAVE ANY QUESTIONS OR IF ANY OF THE FOLLOWING SYMPTOMS OCCUR: * If your incision becomes red, swollen, or more pain
--- NOTE | 2022-12-17 10:51 | SUR.PHASEI ---
900 ml remains in IV of 1000 ml LR with 10 units Pitocin
--- NOTE | 2022-12-17 10:56 | SUR.PHASEI ---
IV placed on pressure bag. Pt denies lightheadedness, dizziness or shortness of breath.
--- NOTE | 2022-12-17 11:08 | SUR.PHASEI ---
BP 75/47. Phenylephrine 100 mcg given IV by Werner Keys SRNA
--- NOTE | 2022-12-17 11:22 | SUR.PHASEI ---
Dr. Tiwari returned page and informed of more vaginal bleeding with fundal massage than I would like to see. Order received for Cytotec. also updated on baby being in Level II nursery. Dr. Thomson came in room to update pt and while I was on the phone with Dr. Tiwari.
[2022-12-17] MEDS: miSOPROStol 200 MCG TABLET 1000 MCG RECTAL (11:34)
[2022-12-17] MEDS: OXYTOCIN 30 UNITS/NS 500 ML 30 UNITS/500 ML BAG 125 UNITS IV CONT (11:54)
--- NOTE | 2022-12-17 11:54 | SUR.PHASEI ---
Dr. Tiwari in to see pt. Discussed QBL of 543 that was on pt's chux when we left OR. (Dr. Tiwari had performed a fundal massage before leaving the OR and a large clot with blood was expressed from uterus.) informed I just weighed her pads and had an additional 143 QBL and viewed current pad after one fundal massage. OK to give another liter of LR and repeat CBC at 1700.
[2022-12-17] MEDS: LACTATED RINGERS 1,000 ML 250 ML IV CONT (12:11)
[2022-12-17] MEDS: diphenhydrAMINE HCl INJ 50 MG/ML VIAL 25 MG IV PUSH ×2 (12:17→19:08)
[2022-12-17] MEDS: MORPHINE SULFATE INJ (*CRX) 10 MG/ML AMP 2 MG IV PUSH (13:04)
--- NOTE | 2022-12-17 13:58 | PC.NURSE ---
PT arrived on unit via stretcher awake and alert accompanied by spouse. in level 2 nursery. PT oriented to room 278 and surrounding area, welcome packet, and white board. PT introductions made and plan of care discussed per post op c section, pain management, breast pumping, daily care activities. in level 2 nursery. PT and spouse both recipients of such instructions and no barriers to learning identified at this time. PT received instructions per one to one discussion, mom baby care guide and demonstrations during this shift. PT verbalized understanding of such care.
[2022-12-17] MEDS: oxyCODONE/ACETAMINOPHEN (*CRX) 5-325 MG TABLET 1 TABLET PO ×2 (14:28→23:24)
[2022-12-17] MEDS: DOCUSATE SODIUM 100 MG CAPSULE PO (17:00)
[2022-12-17] MEDS: POLYSACCHARIDE IRON COMPLEX 150 MG CAPSULE PO ×2 (17:00→20:57)
[2022-12-17] MEDS: DEXTROSE 5%/0.45% SOD CHL 1,000 ML 125 ML IV CONT (17:15)
[2022-12-17] MEDS: IBUPROFEN 600 MG TABLET PO ×2 (17:18→23:24)
[2022-12-17] MEDS: SIMETHICONE 80 MG TAB.CHEW PO (17:20)
[2022-12-17] MEDS: LANOLIN (LANSINOH) 7.5 GM CREAM 1 APPLIC TOPICAL (17:21)
[2022-12-17 17:33] LABS: Hematocrit 25.3 % (37.0-47.0); Hemoglobin 8.2 g/dL (12.0-15.0); Mean Corpuscular HGB Conc 32.4 g/dl (32-36); Mean Corpuscular Hemoglobin 29.4 pg (26-34); Mean Corpuscular Volume 90.7 fl (80-100); Mean Platelet Volume 10.6 fl (7.4-10.4); Platelet Count Result 181 k/mm3 (150-375); Red Blood Count 2.79 M/mm3 (4.2-5.4)
[2022-12-17] MEDS: oxyCODONE/ACETAMINOPHEN (*CRX) 10-325 MG TABLET 1 TAB PO (19:07)
--- NOTE | 2022-12-17 20:30 | PC.NURSE ---
This RN spoke with Dr. Tiwari regarding patients CBC results. Discussed if he wanted patient to have iron this evening and he said to start iron tonight. Patient had been taking a z-pack at home for a sinus infection, after discussing whether patient should continue z-pack Dr. Tiwari ordered for pt to have 250mg of azithromycin tonight (12/17) and tomorrow (12/18). Medication ordered and administered.
[2022-12-17] MEDS: AZITHROMYCIN 250 MG TABLET PO (20:57)
[2022-12-17] MEDS: SERTRALINE HCL 50 MG TABLET 100 MG PO (20:57)
[2022-12-18 05:15] VITALS: BP 106/73; PULSE 86; RESP 16; TEMP 36.9; O2SAT 97
[2022-12-18 05:28] LABS: Basophils Absolute Auto 0.1 K/mm3 (0.0-0.1); Basophils Percent Auto 0.5 % (0.2-1.2); Eosinophils Absolute Auto 0.1 K/mm3 (0-0.3); Hematocrit 23.5 % (37.0-47.0); Hemoglobin 7.4 g/dL (12.0-15.0); Immature Granulocyte Absolute 0.09 K/mm3 (0.00-0.031); Immature Granulocyte Percent A 0.8 % (0-0.5); Lymphocytes Absolute Auto 2.78 K/mm3 (0.9-3.2); Mean Corpuscular HGB Conc 31.5 g/dl (32-36); Mean Corpuscular Hemoglobin 29.4 pg (26-34); Mean Corpuscular Volume 93.3 fl (80-100); Mean Platelet Volume 10.8 fl (7.4-10.4); Monocytes Percent Auto 9.2 % (2.6-8.5); Neutrophils Absolute Auto 7.1 K/mm3 (1.3-6.7); Neutrophils Percent Auto 63.5 % (45.5-73.1); Platelet Count Result 181 k/mm3 (150-375); Red Blood Count 2.52 M/mm3 (4.2-5.4); Red Cell Distribution Width 14.1 % (11.5-14.5); White Blood Count 11.1 K/mm3 (4.5-10.0)
--- NOTE | 2022-12-18 06:30 | PC.NURSE ---
PT introductions made and plan of care discussed per post op c section, pain management, breast pumping, breast feeding and daily care activities. . PT and spouse both recipients of such instructions and no barriers to learning identified at this time. PT received instructions per one to one discussion, mom baby care guide and demonstrations during this shift. PT verbalized understanding of such care.
[2022-12-18] MEDS: IBUPROFEN 600 MG TABLET PO ×3 (06:32→16:55)
[2022-12-18] MEDS: oxyCODONE/ACETAMINOPHEN (*CRX) 5-325 MG TABLET 1 TABLET PO ×4 (06:33→21:07)
--- NOTE | 2022-12-18 07:31 | WPDANLDPN2 ---
Anes-Prog Note L&D Date/Time: 12/18/22 07:31 Comfortable throughout: section Neuraxial method: spinal Epidural/Spinal procedure site: clean & non-tender Neuro status: Neuro function grossly intact. Cardiovascular status: normal Respiratory status: normal Airway patency: baseline Mental status: baseline Post-Op hydration status: normal Vital Signs: Last Vital Signs Temp 36.9 C 12/18/22 05:15 Pulse 86 12/18/22 05:15 Resp 16 12/18/22 05:15 BP 106/73 12/18/22 05:15 Pulse Ox 97 12/18/22 05:15 O2 Del Method Room Air 12/17/22 23:25 Pain score (VAS): 2/10 I/O: Intake & Output 12/17/22 12/17/22 12/18/22 15:59 23:59 07:59 Intake Total 1450 1100 1100 Output Total 2416 1300 650 Balance -966 -200 450 Post-procedural complaints: none Patient feedback: Patient satisfied with anesthetic care.
--- NOTE | 2022-12-18 07:31 | WPDANLDNPN2 ---
Anes-Prog Note L&D-Neuraxial Date/Time: 12/18/22 07:31 Neuraxial medications: intrathecal PF morphine Opiod-related complaints: none Patient feedback: Patient satisfied with post-operative pain management.
[2022-12-18 08:12] VITALS: BP 106/77; PULSE 87; RESP 18; TEMP 37; O2SAT 97
[2022-12-18 08:30] VITALS: PULSE 87; RESP 18; O2SAT 97
[2022-12-18] MEDS: AZITHROMYCIN 250 MG TABLET PO (10:06)
[2022-12-18] MEDS: SIMETHICONE 80 MG TAB.CHEW PO (10:06)
[2022-12-18] MEDS: MULTIVIT/MIN/PREN/FOL AC/IRON TABLET 1 TAB PO (10:06)
[2022-12-18] MEDS: POLYSACCHARIDE IRON COMPLEX 150 MG CAPSULE PO ×2 (10:07→16:57)
[2022-12-18] MEDS: DOCUSATE SODIUM 100 MG CAPSULE PO ×2 (10:07→16:57)
[2022-12-18 10:24] LABS: Rapid Plasma Reagin Non-Reactive (NonReactive)
--- NOTE | 2022-12-18 14:56 | PC.NURSE ---
[id number] Introductions were made, then consulted with patient to assess needs related to . Mother led the conversation with her?plans to feed?her and the?experience so far. Discussed late /early term infant feeding behaviors. Mother has had a previous delivery at 33 weeks with her first and states she pump and fed her first baby. Resources provided for inpatient care with RN's name written on the white board. Mother voiced understanding of information and will call if there is a request for assistance. Reported to the primary RN.
--- NOTE | 2022-12-18 16:12 | PM.OBPNVD ---
OB - PN: Subj Subjective Date/time seen: 12/18/22 16:12 Patient comments: no complaints and pain well controlled baby status: doing well OB - PN: Obj Data Labs 12/18/22 05:16 Labs: Laboratory Results - last 24 hr 12/17/22 12/17/22 12/18/22 08:15 17:24 05:16 WBC 15.0 H 11.1 H RBC 2.79 L 2.52 L Hgb 8.2 L D 7.4 L Hct 25.3 L 23.5 L MCV 90.7 93.3 MCH 29.4 29.4 MCHC 32.4 31.5 L RDW 14.0 14.1 Plt Count 181 181 MPV 10.6 H 10.8 H Immature Gran % (Auto) 0.8 H Neut % (Auto) 63.5 Lymph % (Auto) 25.0 [place] % (Auto) 9.2 H Eos % (Auto) 1.0 Baso % (Auto) 0.5 Lymph # (Auto) 2.78 [place] # (Auto) 1.0 H Eos # (Auto) 0.1 Baso # (Auto) 0.1 Abs Immat Gran (auto) 0.09 H Absolute Neuts (auto) 7.1 H Absolute Nucleated RBC 0.0 Nucleated RBC % 0.0 RPR Non-reactive OB - PN A/P Plan day: 1 Plan: routine care Comments: anemic start iron Time Spent With Patient Time: Total time spent is greater than 50% in coordination of care (as documented) at patient's floor/unit and/or counseling patient: Exam Const: General: cooperative, healthy appearing and comfortable Nutritional Appearance: average body habitus Orientation/consciousness: oriented to person, oriented to place and oriented to time HENMT: Head: normal to inspection Resp: Effort & Inspection: normal respiratory effort Cardio: Rate: regular rate Rhythm: regular rhythm Heart sounds: S1 normal heart sound present and S2 normal heart sound present GI: Inspection: normal to inspection and incision (cdi)
[2022-12-18 19:59] VITALS: BP 114/64; PULSE 91; RESP 18; TEMP 37.1; O2SAT 98
[2022-12-18] MEDS: SERTRALINE HCL 50 MG TABLET 100 MG PO (21:07)
[2022-12-19] MEDS: oxyCODONE/ACETAMINOPHEN (*CRX) 10-325 MG TABLET 1 TAB PO ×3 (01:18→08:30)
[2022-12-19] MEDS: IBUPROFEN 600 MG TABLET PO ×3 (01:20→21:12)
[2022-12-19 05:33] LABS: Basophils Percent Auto 0.3 % (0.2-1.2); Eosinophils Absolute Auto 0.2 K/mm3 (0-0.3); Eosinophils Percent Auto 1.3 % (0-4.4); Hematocrit 22.4 % (37.0-47.0); Immature Granulocyte Absolute 0.61 K/mm3 (0.00-0.031); Immature Granulocyte Percent A 4.1 % (0-0.5); Lymphocytes Absolute Auto 3.63 K/mm3 (0.9-3.2); Lymphocytes Percent Auto 24.2 % (18.3-44.2); Mean Corpuscular HGB Conc 31.3 g/dl (32-36); Mean Corpuscular Hemoglobin 28.8 pg (26-34); Mean Corpuscular Volume 92.2 fl (80-100); Mean Platelet Volume 10.8 fl (7.4-10.4); Monocytes Absolute Auto 1.3 K/mm3 (0.1-0.6); Monocytes Percent Auto 8.6 % (2.6-8.5); Neutrophils Absolute Auto 9.2 K/mm3 (1.3-6.7); Neutrophils Percent Auto 61.5 % (45.5-73.1); Platelet Count Result 190 k/mm3 (150-375); Red Blood Count 2.43 M/mm3 (4.2-5.4); Red Cell Distribution Width 14.3 % (11.5-14.5)
[2022-12-19] MEDS: DOCUSATE SODIUM 100 MG CAPSULE PO ×2 (07:30→21:06)
[2022-12-19] MEDS: MULTIVIT/MIN/PREN/FOL AC/IRON TABLET 1 TAB PO (07:30)
[2022-12-19 07:35] VITALS: BP 100/60; PULSE 82; RESP 16; TEMP 37.2; O2SAT 98
[2022-12-19 08:30] VITALS: PULSE 82; RESP 16; O2SAT 98
--- NOTE | 2022-12-19 09:18 | PM.OBPNVD ---
OB - PN: Subj Subjective Date/time seen: 12/19/22 09:18 Patient comments: no complaints and pain well controlled baby status: doing well OB - PN: Obj Data Labs 12/19/22 05:06 Labs: Laboratory Results - last 24 hr 12/17/22 12/19/22 08:15 05:06 WBC 15.0 H RBC 2.43 L Hgb 7.0 L Hct 22.4 L MCV 92.2 MCH 28.8 MCHC 31.3 L RDW 14.3 Plt Count 190 MPV 10.8 H Immature Gran % (Auto) 4.1 H Neut % (Auto) 61.5 Lymph % (Auto) 24.2 [place] % (Auto) 8.6 H Eos % (Auto) 1.3 Baso % (Auto) 0.3 Lymph # (Auto) 3.63 H [place] # (Auto) 1.3 H Eos # (Auto) 0.2 Baso # (Auto) 0.0 Abs Immat Gran (auto) 0.61 H Absolute Neuts (auto) 9.2 H Absolute Nucleated RBC 0.0 Nucleated RBC % 0.0 RPR Non-reactive OB - PN A/P Plan day: 2 Plan: routine care Time Spent With Patient Time: Total time spent is greater than 50% in coordination of care (as documented) at patient's floor/unit and/or counseling patient: Time with patient: less than 15 minutes Exam Const: General: cooperative, healthy appearing and comfortable Nutritional Appearance: average body habitus HENMT: Head: normal to inspection Resp: Effort & Inspection: normal respiratory effort Cardio: Rate: regular rate Rhythm: regular rhythm Heart sounds: S1 normal heart sound present and S2 normal heart sound present GI: Inspection: normal to inspection and incision (cdi)
[2022-12-19] MEDS: ACETAMINOPHEN 325 MG TABLET 650 MG PO (12:30)
--- NOTE | 2022-12-19 13:41 | PC.NURSE ---
[id number] Consulted with patient to assess needs related to . Mother led conversation with her experience with feeding baby so far. Mother works well with her infant with encouragement. Reviewed working with , supporting breast and how to protect the nipples with an optimal deep latch, good positioning, rinse, air dry, breast milk applied to dry, and good hand washing. Left nipples is dimpled and mother is able to stimulate to ginna with a grade 1-2. Encouraged understanding the benefits of skin to skin, responding to feeding cues, frequencies of feeding 8-12 times in 24 hours (approximately 2-3 hours), duration of feedings, milk production, intake/output feeding sheet and signs of adequate intake encouraging swallowing at the breast. Mother will call with the next session. [id number] Consulted after requested, then reviewed positioning and alignment, supporting breast, off-centered (asymmetrical latch) and leading with the chin with big, open, wide gape. Infant latched optimally to the right breast in cross cradle position independently with mother, then mother detached and practiced football positioning. Education given to mother of how to visualize suck/swallow ratios and listen for drinking at the breast. Infant was able to maintain latch without discomfort to mother. Nipple care reviewed with optimal latch, good positioning and using clean hands when feeding her and touching her breast. Reviewed the risks and benefits of formula feeding with a bottle so mother can make an informed decision. Reviewed late behaviors as it pertains to and sustaining growth and health. Resources used to facilitate learning were used from the tool, mom and baby guide. Mother voiced understanding of the education shared, to call for assistance if the infant does not latch or if there is discomfort with . Reported to the primary RN.
[2022-12-19] MEDS: oxyCODONE/ACETAMINOPHEN (*CRX) 5-325 MG TABLET 1 TABLET PO ×2 (15:15→21:13)
--- NOTE | 2022-12-19 15:23 | PC.NURSE ---
[id number] Mother verbalizes she is able to independently latch with appropriate positioning/alignment. She denies any nipple discomfort and is responsively . Infant is currently meeting outcomes for weight, output, jaundice and feeding frequencies of 8-12 times in 24 hours. Mother states infant breastfed on the right breast without pain for 15 min with no nipple misshaping. Attempted to latch infant to the left breast and arches back and doesn't latch. Infant placed [id number] on mother and hands are relaxed with no feeding cues visualized. Reviewed education regarding late behaviors as it relates to . Mother declines any additional assistance/education at this time. Mother is encouraged to call for assistance if her infant doesn?t latch or there is discomfort with latching. Mother voiced understanding of information shared, reminded of the mom/baby guide for an additional resource, and Mother declines any additional assistance/education at this time. Reported to the primary RN.
[2022-12-19 20:30] VITALS: BP 111/75; PULSE 90; RESP 18; TEMP 36.8; O2SAT 97
[2022-12-19] MEDS: SERTRALINE HCL 50 MG TABLET 100 MG PO (21:05)
[2022-12-20] MEDS: IBUPROFEN 600 MG TABLET PO (05:01)
--- NOTE | 2022-12-20 06:44 | PM.OBPNVD ---
OB - PN: Subj Subjective Date/time seen: 12/20/22 06:44 Patient comments: no complaints and pain well controlled OB - PN: Obj Data Labs 12/19/22 05:06 OB - PN A/P Plan day: 3 Plan: routine care, discharge home and follow up 6 weeks ( 4 weeks) Time Spent With Patient Time: Total time spent is greater than 50% in coordination of care (as documented) at patient's floor/unit and/or counseling patient: Time with patient: less than 15 minutes Exam Const: General: cooperative, healthy appearing, comfortable and well groomed Orientation/consciousness: oriented to person, oriented to place and oriented to time HENMT: Head: normal to inspection Resp: Effort & Inspection: normal respiratory effort Cardio: Rate: regular rate Rhythm: regular rhythm Heart sounds: S1 normal heart sound present and S2 normal heart sound present GI: Inspection: normal to inspection and incision ( wound)
[2022-12-20 07:43] VITALS: BP 115/75; PULSE 83; RESP 14; TEMP 36.6; O2SAT 98
[2022-12-20] MEDS: DOCUSATE SODIUM 100 MG CAPSULE PO (09:48)
[2022-12-20] MEDS: POLYSACCHARIDE IRON COMPLEX 150 MG CAPSULE PO (09:48)
[2022-12-20] MEDS: MULTIVIT/MIN/PREN/FOL AC/IRON TABLET 1 TAB PO (09:48)
[2022-12-22 10:54] VITALS: BP 133/85; PULSE 87; RESP 16; TEMP 36.9; O2SAT 99
== END 2022-12-20 12:08 | disposition home or self-care (01) | DRG 788 ==
LOC: ANHLDR 12:12 → ANHOB2 23:15 → ANHLDR 12-22 13:32 → ANHOB2 12-22 13:32
PROVIDERS: Admitting Provider Obstetrics & Gynecology; PCP Family Medicine; Visit Provider Obstetrics & Gynecology
PROC: 10D00Z1 Extraction of Products of Conception, Low, Open Approach (ICD-10-PCS; CPT 59514; principal; 2022-12-17 09:45)
DX: O44.53 Low lying placenta with hemorrhage, third trimester (principal); Z3A.36 36 weeks gestation of pregnancy; Z37.0 Single live birth; O99.344 Other mental disorders complicating childbirth; F41.9 Anxiety disorder, unspecified; O99.334 Smoking (tobacco) complicating childbirth; F17.210 Nicotine dependence, cigarettes, uncomplicated
CPT/HCPCS: 36415; 85025; 85027; 86592; 86703; 86850; 86900; 86901; 88307; A9270; G0432; J0131; J0690; J1200; J2270; J2274; J2370; J2405; J2590; J7120

== ENCOUNTER 2024-11-08 16:04 | Outpatient (CLI) | payer OTHER, SELFPAY ==
--- NOTE | ~2024-11-08 | XR_ITS ---
3 VIEWS LUMBAR SPINE Ordering provider: Juan Antonio Wagner MD History: . M54.50 - Low back pain, unspecified . Comparison: None. FINDINGS: VERTEBRAL BODIES: No visible fracture or subluxation. DISK SPACES: Normal. SOFT TISSUES: Normal. IMPRESSION: No acute osseous abnormality lumbar spine. Reviewed, dictated and finalized at location A.
--- NOTE | ~2024-11-08 | MM_ITS ---
EXAMINATION: MM screening [facility] BI w [facility]cco HISTORY: Screening TECHNIQUE: Craniocaudal and mediolateral oblique 3-D tomosynthesis images were obtained and synthetic 2-D images were generated. CAD analysis was submitted and interpreted. COMPARISON: No prior mammogram is available for comparison at this institution. BREAST PARENCHYMAL COMPOSITION: Not dense: There are scattered areas of fibroglandular density. FINDINGS: There is no evidence of suspicious mass, calcification, or architectural distortion to sugg est malignancy in either breast. There has been no suspicious interval change. IMPRESSION: 1. No mammographic evidence of malignancy. 2. Recommend routine screening mammography in one year. BI-RADS Category 1: Negative Reviewed, dictated and finalized at location B.
== END 2024-11-08 16:05 | disposition home or self-care (01) ==
LOC: MICIMG 16:05
PROVIDERS: PCP Family Medicine; Visit Provider Family Medicine
DX: Z12.31 Encounter for screening mammogram for malignant neoplasm of breast (principal); M54.50 Low back pain, unspecified
CPT/HCPCS: 72110; 77063; 77067